=== PATIENT | female | born 1975 | race Caucasian/White ===

== ENCOUNTER → 2016-07-15 | Outpatient (CLI) | payer OTHER ==
[~2016-07-15] MED LIST: SYN100 PO; [UNRECOGNIZED DRUG - OTHER] OR
== END | disposition home or self-care (01) ==
LOC: C.PAPS 11:10
PROVIDERS: ATTEND Obstetrics & Gynecology
DX: Z01.419 Encounter for gynecological examination (general) (routine) without abnormal findings (principal)

== ENCOUNTER → 2016-09-27 | Outpatient (CLI) | payer OTHER ==
[2016-09-27 12:42] LABS: BLOOD UREA NITROGEN 17 mg/dl (7-18); CARBON DIOXIDE 32 mmol/L (21-32); CHLORIDE 107 mmol/L (98-107); CREATININE 0.75 mg/dl (0.60-1.20); GLUCOSE 84 mg/dl (70-99); POTASSIUM 4.2 mmol/L (3.5-5.1); SODIUM 142 mmol/L (136-145)
== END | disposition home or self-care (01) ==
LOC: C.LABPVFM 09:16
PROVIDERS: ATTEND Nurse Practitioner
DX: E03.9 Hypothyroidism, unspecified (principal)

== ENCOUNTER → 2017-06-23 | Outpatient (CLI) | payer OTHER ==
--- NOTE | 2017-06-26 07:58 | MAMMOGRAPHY REPORT ---
BILATERAL DIGITAL SCREENING MAMMOGRAM TOMOSYNTHESIS WITH CAD: 06/23/2017 CLINICAL HISTORY: Routine screening. Baseline exam. TECHNIQUE: Breast tomosynthesis in addition to standard 2D mammography was performed. Current study was also evaluated with a Computer Aided Detection (CAD) system. COMPARISON: No prior exams were available for comparison. BREAST COMPOSITION: The tissue of both breasts is heterogeneously dense, which may obscure small mas ses. FINDINGS: There is a nodular 6 mm focal asymmetry within the right lower inner quadrant. Additional ly, there is a 6 mm asymmetry seen within the right superior breast on the MLO view. Recommend spot compression tomosynthesis views and possible breast ultrasound for further evaluation. The remainder of both breasts are negative, without suspicious masses, calcifications, or areas of ar chitectural distortion noted. IMPRESSION: ACR BI-RADS CATEGORY 0: INCOMPLETE EVALUATION: NEED ADDITIONAL IMAGING EVALUATION Right breast asymmetries, for which additional imaging evaluation is recommended. The patient will b e called to schedule an appointment. Approximately 10% of breast cancers are not detected with mammography. A negative mammographic report should not delay biopsy if a clinically suggestive mass is present. Mimi Rascon M.D. ah/:06/23/2017 14:59:09 Mental Health Practitioner: Kisha GALVEZ(Kaylynn)(Christal)([place]), [facility] letter sent: Addl Imaging 0 BI-RADS Code: ACR BI-RADS Category 0: Incomplete Evaluation: Need Additional Imaging Evaluation
== END | disposition home or self-care (01) ==
LOC: C.MAMM 14:28
PROVIDERS: ATTEND Obstetrics & Gynecology
DX: Z12.31 Encounter for screening mammogram for malignant neoplasm of breast (principal)

== ENCOUNTER → 2017-06-30 | Outpatient (CLI) | payer OTHER ==
--- NOTE | 2017-06-30 15:34 | MAMMOGRAPHY REPORT ---
UNILATERAL RIGHT DIGITAL DIAGNOSTIC MAMMOGRAM TOMOSYNTHESIS AND TARGETED RIGHT ULTRASOUND: 06/30/2017 CLINICAL HISTORY: Callback from screening mammogram for right breast asymmetries. TECHNIQUE: Breast tomosynthesis in addition to standard 2D mammography was performed. Spot compress ion right CC and MLO 2-D and tomosynthesis images were obtained. COMPARISON: Comparison is made to exam dated: 06/23/2017 mammogram - [facility]. BREAST COMPOSITION: The tissue of the right breast is heterogeneously dense, which may obscure small masses. FINDINGS: Spot compression views demonstrate decreased prominence of the focal asymmetry in the rig ht lower inner quadrant. Additionally, the asymmetry seen within the right sightly superior breast i s less prominent, and thought to project in the lateral breast on the tomosynthesis localizer bar at approximately 9 to 10:00. Targeted ultrasound was performed of the sites of the right breast asymmetries. In the right breast at 4:00, approximately 3 cm from the nipple, there is an oval parallel mixed echogenicity, predominan tly hypoechoic, 6 x 5 x 2 mm mass. Some echogenic tissue is seen within the mass which could represe nt a fatty hilum although no central internal vascularity is evident to suggest an intramammary lymph node. This corresponds with the focal asymmetry in the right lower inner quadrant and is indetermin ate and may represent an intramammary lymph node versus another solid mass such as a fibroadenoma. In the right breast at 9:00, 2 cm from the nipple, there is a macrolobulated circumscribed hypoechoic solid versus cystic 6 x 3 x 5 mm mass. This is felt to correspond with the other asymmetry and is a lso indeterminant. The options of short interval follow-up versus biopsy were discussed with the pat ient. At this time we will proceed with ultrasound guided biopsy of both masses. IMPRESSION: ACR BI-RADS CATEGORY 4: SUSPICIOUS, TARGETED ULTRASOUND ACR BI-RADS CATEGORY 4: SUSPICIO US 1. Small 6 mm mixed echogenicity mass in the right breast at 4:00 on ultrasound, which is felt to co rrespond with a mammographic focal asymmetry. The mass is indeterminate and ultrasound guided core n eedle biopsy is recommended for further evaluation. 2. Hypoechoic 6 mm mass in the right 9:00 breast on ultrasound, which is felt to correspond with the other mammographic asymmetry. The mass is indeterminate and ultrasound guided core needle biopsy is recommended for further evaluation. A phone call was made to the physician's office to confirm faxed results were received. The patient has been verbally notified of the results. She tentatively scheduled the biopsies before leaving the department. Approximately 10% of breast cancers are not detected with mammography. A negative mammographic report should not delay biopsy if a clinically suggestive mass is present. Mimi Rascon M.D. ah/:06/30/2017 10:23:01 Index Clerk: Mary Bhatt, [facility] letter sent: Abnormal 4/5 BI-RADS Code: ACR BI-RADS Category 4: Suspicious Ultrasound BI-RADS: ACR BI-RADS Category 4: Suspici ous
== END | disposition home or self-care (01) ==
LOC: C.MAMM 08:06
PROVIDERS: ATTEND Obstetrics & Gynecology
DX: N64.89 Other specified disorders of breast (principal); N63.10 Unspecified lump in the right breast, unspecified quadrant

== ENCOUNTER → 2017-07-11 | Outpatient (CLI) | payer OTHER ==
--- NOTE | 2017-07-11 10:48 | Discharge Instructions ---
Discharge Instructions Procedure Procedure Date: Jul 11, 2017. Reason for visit: Right Masses. Discharge Discharge Date: Jul 11, 2017. Discharge Diagnosis: post right breast ultrasound guided core biopsy x 2 Instructions Activity Recommendations: Additional Limitations (see below) Return to School/Work: no limitations Recommended Home Diet: No Limitations Provider Instructions: ACTIVITY RECOMMENDATIONS: * No lifting, pushing, pulling or exercising the affected side for three days. RETURN TO SCHOOL/WORK: * You may return to work/school after the procedure, but do not perform any strenuous activities for 24 to 48 hours. MEDICATIONS: * Tylenol (two 325 mg) every four to six hours if needed for mild pain (if not allergic to Tylenol). DIET: * Resume previous diet. SPECIAL CARE INSTRUCTIONS: * Keep biopsy site dry for 24 hours. May shower after 24 hours, but do not soak (bathe) incision. * May remove Tegaderm (plastic patch) tomorrow AFTER showering. * Leave the steri-strips on for one week. Allow the steri-strips to fall off by themselves. If not off after one week, you may remove them. You may place a Bandaid crosswise over the strips, if desired. * Apply ice 10 minutes on and 10 minutes off as needed. * Wear a bra at bedtime to sleep more comfortably for 2-3 days. * Your referring physician should have the results after approximately 5 to 7 business days. * Call for unusual bleeding, fever, drainage, etc or if you have any questions call [phone] during normal business hours or after hours call Dr Hanson, . FOLLOW UP VISIT: Follow-up with Referring Physician as scheduled. Allergies Coded Allergies: No Known Allergies (Unverified , 10/16/12) Corwin Carbajal Recommendations: Call your doctor if: * Temperature above 101 degrees * Pain not relieved by pain medicine ordered * There is increased drainage or redness from any incision * You have any unanswered questions or concerns. Your Doctors Instructions noted above were prepared by provider Manuela Hanson. Patient Signature Section: Patient Instructions Signature Page Jayda Turner Patient (or Guardian) Signature/Date: I have read and understand the instructions given to me by my caregivers. Caregiver/RN/Doctor Signature/Date: The above-named patient and/or guardian has received patient instructions on this date. + Original Patient Signature Page (only) stays with chart. Please make copy for patient.
--- NOTE | 2017-07-11 13:38 | MAMMOGRAPHY REPORT ---
MULTIPLE ULTRASOUND GUIDED BIOPSIES RIGHT BREAST: 07/11/2017 CLINICAL HISTORY: Hypoechoic solid and lobulated 6 mm mass in the 9:00 right breast on ultrasound and mixed echogenicity 6 mm mass in the 4:00 right breast on ultrasound, thought to correlate with mammo graphic asymmetries. Patient presents for ultrasound guided core biopsy 2 in the right breast. COMPARISON: Comparison is made to exams dated: 06/30/2017 mammogram, 06/30/2017 ultrasound, and 06/09 mammogram - [facility]. PATIENT CONSENT: The procedure, risks and benefits were discussed with the patient and informed conse nt was obtained both verbally and in writing. Specific risks to this procedure include: bleeding, in fection, puncture of adjacent structure, nontarget biopsy, sampling error, pain, metal allergy and me dication reaction. PROCEDURE DESCRIPTION: A time out was performed and the right breast was agreed as the site of biopsy . The skin was prepped and draped in the usual sterile fashion. First, the solid lobulated hypoechoi c mass in the 9:00 right breast was chosen as the target for biopsy. Subcutaneous and intraparenchyma l 1% buffered lidocaine, with and without epinephrine, was administered as local anesthesia. A skin i ncision was made. Through the incision, 4 samples were taken with a 14 gauge Achieve biopsy device. A ribbon shaped metallic marker was placed at the biopsy site. Hemostasis was achieved after manual c ompression. The patient tolerated the procedure well and there was no immediate complication. Second, the mixed echogenicity 6 mm mass in the 4:00 right breast was identified and targeted for bio psy. Subcutaneous and intraparenchymal 1% buffered lidocaine, with and without epinephrine, was admin istered as local anesthesia. A skin incision was made. Through the incision, 4 samples were taken wi th a 14 gauge Achieve biopsy device. A wing shaped metallic marker was placed at the biopsy site. Hem ostasis was achieved after manual compression. The patient tolerated the procedure well and there was no immediate complication. All of the samples were sent to the pathology department in an appropria tely labeled containers. The patient left the department in satisfactory condition. Postprocedure right CC and ML tomosynthesis images were obtained. A new ribbon-shaped biopsy marker clip is seen in the 9:00 posterior right breast, aligning with the asymmetry in question. A wing sha ped biopsy marker clip is seen in the medial/4:00 right breast aligning with the focal asymmetry in q uestion. No significant postbiopsy hematoma is identified. IMPRESSION: ULTRASOUND GUIDED BIOPSY Status post ultrasound guided core biopsy of an indeterminate 6 mm mass in the 9:00 right breast an i ndeterminate 6 mm mass in the 4:00 right breast, with biopsy markers placed at each site. The patient will receive notification of the pathology results from her referring physician. Manuela Hanson M.D. ay/:07/11/2017 12:55:25 Extractions Technologist: Maria Victoria RESENDIZ)(Christal), [facility]
--- NOTE | 2017-07-11 13:38 | MAMMOGRAPHY REPORT ---
MULTIPLE ULTRASOUND GUIDED BIOPSIES RIGHT BREAST: 07/11/2017 CLINICAL HISTORY: Status post ultrasound guided core biopsy of 2 indeterminate masses in the right br east in the 4:00 and 9:00 axes. Please refer to the report from right breast ultrasound guided core biopsy performed at the same time for full detail. IMPRESSION: ULTRASOUND GUIDED BIOPSY Please refer to the report from right breast ultrasound guided core biopsy performed at the same time for full detail. Manuela Hanson M.D. ay/:07/11/2017 10:49:35 Pharmacy Billing Adjudicator: Maria Victoria GALVEZ(Kaylynn)(Christal), [facility]
--- NOTE | 2017-07-11 13:38 | MAMMOGRAPHY REPORT ---
UNILATERAL RIGHT DIGITAL DIAGNOSTIC MAMMOGRAM TOMOSYNTHESIS: 07/11/2017 CLINICAL HISTORY: Status post ultrasound-guided core biopsy of an indeterminate mixed echogenicity ma ss in the 4:00 right breast and a hypoechoic solid appearing mass in the 9:00 right breast. Please refer to the report from right breast ultrasound guided core biopsy performed at the same time for full detail. IMPRESSION: POST PROCEDURE IMAGING FOR MARKER PLACEMENT Please refer to the report from right breast ultrasound guided core biopsy performed at the same time for full detail. Approximately 10% of breast cancers are not detected with mammography. A negative mammographic report should not delay biopsy if a clinically suggestive mass is present. Manuela Hanson M.D. ay/:07/11/2017 10:47:38 Mussel Opener: Maria Victoria RESENDIZ)(Christal), [facility] BI-RADS Code: Post Procedure Imaging For Marker Placement
== END | disposition home or self-care (01) ==
LOC: C.MAMM 09:55
PROVIDERS: ATTEND Obstetrics & Gynecology
DX: N63.10 Unspecified lump in the right breast, unspecified quadrant (principal); D24.1 Benign neoplasm of right breast

== ENCOUNTER → 2017-09-29 | Outpatient (CLI) | payer OTHER ==
[2017-09-29 13:16] LABS: BLOOD UREA NITROGEN 19 mg/dl (7-18); CALCIUM 8.7 mg/dl (8.5-10.1); CARBON DIOXIDE 28 mmol/L (21-32); CHOLESTEROL 176 mg/dl (0-200); CREATININE 0.69 mg/dl (0.60-1.20); GLUCOSE 85 mg/dl (70-99); POTASSIUM 3.9 mmol/L (3.5-5.1); SODIUM 138 mmol/L (136-145)
[2017-09-29 13:26] LABS: LDL CHOLESTEROL CALCULATED 107 mg/dl
== END | disposition home or self-care (01) ==
LOC: C.LABPVFM 09:17
PROVIDERS: ATTEND Nurse Practitioner
DX: E03.9 Hypothyroidism, unspecified (principal); Z13.220 Encounter for screening for lipoid disorders